=== PATIENT | female | born 1975 | race Caucasian/White ===

== ENCOUNTER → 2017-07-22 | Outpatient (CLI) | payer OTHER ==
--- NOTE | 2017-07-22 16:37 | DIAGNOSTIC IMAGING REPORT ---
CERVICAL SPINE 4 OR 5 VIEWS HISTORY: 41 years-old Female ACUTE NECK PAIN acute left-sided neck pain and stiffness. Associated left arm numbness and tingling. COMPARISON: None available TECHNIQUE: 5 views of the cervical spine FINDINGS: The T1 vertebral body and T1-T2 disc space are suboptimally visualized secondary to overlying soft tissue. No acute cervical spine fracture, subluxation or significant degenerative changes. Alignment is preserved. Bilateral bony neural foramen appear widely patent. No prevertebral soft tissue swelling. Lung apices appear clear. IMPRESSION: 1. No acute cervical spine fracture or subluxation. 2. No significant degenerative changes identified. The above report was generated using voice recognition software. It may contain grammatical, syntax or spelling errors. Electronically signed by: Ryan Waters M.D. 07/22/2017 4:36 PM Dictated Date/Time: 07/22/2017 4:34 PM
== END | disposition home or self-care (01) ==
LOC: C.RDSM 14:04
PROVIDERS: ATTEND Family Medicine
DX: M54.2 Cervicalgia (principal)